=== PATIENT | female | born 1950 | race Caucasian/White ===

== ENCOUNTER 2016-08-18 08:10 | Day surgery (SDC) | payer OTHER, BC ==
[2016-08-17 08:32] VITALS: Ht 156.2 cm; Wt 70.9 kg
[~2016-08-18] VITALS: Ht 156.2 cm; Wt 70.9 kg
[~2016-08-18 08:10] MED LIST: AMLO-110 PO; CEFAZOLIN 2000 MG/60 ML D5W IV SCH; CHOL1000 PO; COCO1OIL2 PO; COEN50CA22 PO; DOCU-94 PO; LACTATED RINGER'S 1000ML 1,000 ML IV SCH; LEVO75TA5 PO; MULT-506 PO; SENN1TAB80 PO; TURM500T PO; VENL75CA73 PO; ZOLP10TA PO
[2016-08-18 08:41] VITALS: BP 140/84; PULSE 63; TEMP 36.9; O2SAT 98
[2016-08-18] MEDS ORDERED: DEXAMETHASONE SOD INJ 4 MG/ML VIAL ONE (09:53)
[2016-08-18] MEDS ORDERED: ROCURONIUM BROMIDE 10 MG/ML 5 ML VIAL ONE (09:53)
[2016-08-18] MEDS ORDERED: ONDANSETRON INJ 2 MG/ML 2 ML VIAL ONE (09:53)
[2016-08-18] MEDS ORDERED: PROPOFOL IV EMULSION 10 MG/ML 20 ML VIAL IV ONE (09:53)
[2016-08-18] MEDS ORDERED: LIDOCAINE HCL 2% 2 ML VIAL (20MG/ML) ONE (09:53)
[2016-08-18] MEDS ORDERED: MIDAZOLAM HCL 1 MG/ML 2ML VIAL ONE (09:53)
[2016-08-18] MEDS ORDERED: GLYCOPYRROLATE INJ 0.2 MG/ML VIAL ONE ×2 (09:53→12:24)
[2016-08-18] MEDS ORDERED: NEOSTIGMINE METHYLSULFATE 5 MG/5 ML SYR ONE (09:53)
[2016-08-18] MEDS ORDERED: FENTANYL CITRATE INJ 50 MCG/1 ML 2 ML VIAL ONE ×2 (09:54)
[2016-08-18] MEDS ORDERED: NURSING VERBAL MED ORDER ONE (10:15)
[2016-08-18] MEDS ORDERED: SCOPOLAMINE 1.5 MG TDSY TD ONE (10:21)
--- NOTE | 2016-08-18 10:24 | History & Physical Bridge Note ---
H&P Re-Evaluation Bridge Note: I have examined the patient, reviewed the History & Physical and in the interval since the performance of the History & Physical I have noted the following changes of clinical significance: No changes noted
[2016-08-18] MEDS ORDERED: BACITRACIN OINT 15 GM TUBE ONE (10:43)
[2016-08-18] MEDS ORDERED: BUPIVACAINE 0.5 % 5 MG/1 ML MPF 30ML VIAL ONE (10:43)
[2016-08-18] MEDS ORDERED: LIDOCAINE HCL 1% 20 ML VIAL ONE (10:43)
[2016-08-18] MEDS ORDERED: EpHEDrine SULFATE INJ 50 MG/ML AMP IV PRN (11:45)
[2016-08-18] MEDS ORDERED: ONDANSETRON INJ 2 MG/ML 2 ML VIAL IV PRN (11:45)
[2016-08-18] MEDS ORDERED: ATROPINE SULFATE 0.1 MG/ML 5ML SYR IV PRN (11:45)
--- NOTE | 2016-08-18 12:30 | [facility] Post Operative Brief Note ---
Immediate Operative Summary Operative Date Aug 18, 2016. Pre-Operative Diagnosis Cholelithasis, cholecystitis Post-Operative Diagnosis same Procedure(s) Performed Laparoscopic Cholecystectomy Surgeon DR Choi Cattle Inspector Surgeon(s) nursing surgical services director Estimated Blood Loss 10 ml Findings chronic cholecystitis, cholelithiasis Fluids (cc crystalloids) 1100ml Specimens a. gallbladder Drains none Anesthesia general Complication(s) None Disposition Recovery Room / PACU
--- NOTE | 2016-08-18 12:37 | Discharge Instructions ---
Discharge Instructions Date of Service Aug 18, 2016. Visit Reason for Visit: Gallstones Discharge Discharge Diagnosis / Problem: S/P laparoscopic cholecystectomy Discharge Goals Goal(s): Decrease discomfort, Improve nutritional status Activity Recommendations Activity Limitations: per Instructions/Follow-up section Lifting Limitations: no more than 25 pounds Exercise/Sports Limitations: gradually increase as tolerated May Resume Sexual Activity: when tolerated Shower/Bathe: may shower/bathe in 3 days Driving or Machine Use: resume 3 days after discharge Anesthesia . Post Anesthesia Instructions: If you have had General Anesthesia or IV Sedation: * Do not drive today. * Resume driving when surgeon permits. * Do not make important decisions or sign legal documents today. * Call surgeon for: 1. Temperature elevations greater than 101 degrees F. 2. Uncontrollable pain. 3. Excessive bleeding. 4. Persistent nausea and vomiting. 5. Medication intolerance (nausea, vomiting or rash). * For nausea and vomiting use only clear liquids such as: tea, soda, bouillon until nausea subsides, then gradually increase diet as tolerated. * If you have any concerns or questions, call your surgeon's office. If physician is unavailable and it is an emergency, call 911 or go to the nearest emergency room. . Instructions / Follow-Up Instructions / Follow-Up keep the dressing on for 4 days, she can take a shower on 08/22/2016, no driving while taking pain medicine, follow up i week, Diet Recommendations Recommended Home Diet: resume previous diet Procedures Procedures Performed: Laparoscopic Cholecystectomy Pending Studies Studies pending at discharge: no Medical Emergencies . Who to Call and When: Medical Emergencies: If at any time you feel your situation is an emergency, please call 911 immediately. . Non-Emergent Contact Non-Emergency issues call your: Surgeon Call Non-Emergent contact if: you have a fever, temperature is above 100.5, your pain is not controlled, your pain is worsening, wound has increased drainage, wound has increased redness . . "Provider Documentation" section prepared by Leandra Choi. . [place] Drug Monitoring Program Search Results: no issues identified
[2016-08-18] MEDS ORDERED: OXYC7.5T66 PO (12:41)
[2016-08-18] MEDS ORDERED: D5W AND 1/2NSS + 20MEQ KCL 1,000 ML IV SCH (12:42)
[2016-08-18] MEDS ORDERED: HYDROmorphone INJ 1 MG/ML SYR IV PRN (12:45)
[2016-08-18] MEDS ORDERED: OXYCODONE/ACETAMINOPHEN 5-325 TAB PO PRN (12:45)
[2016-08-18] MEDS ORDERED: ACETAMINOPHEN 325 MG TAB PO PRN (12:45)
[2016-08-18] MEDS: FENTANYL CITRATE INJ 50 MCG/1 ML 2 ML VIAL IV PRN ×4 (13:04→13:55)
--- NOTE | 2016-08-18 13:26 | Anesthesiology Progress Note ---
Anesthesia Post Op Note Date & Time Aug 18, 2016 at 13:27 Vital Signs Pain Intensity: 5 Vital Signs Past 12 Hours Date Time Temp Pulse Resp B/P (MAP) Pulse Ox O2 Delivery O2 Flow Rate FiO2 08/18/16 12:39 36.0 63 16 147/84 97 Mask 15 08/18/16 08:41 36.9 63 18 140/84 (102) 98 Room Air Notes Mental Status: alert / awake / arousable, participated in evaluation Pt Amnestic to Procedure: Yes Nausea / Vomiting: adequately controlled Pain: adequately controlled Airway Patency, RR, SpO2: stable & adequate BP & HR: stable & adequate Hydration State: stable & adequate Anesthetic Complications: no major complications apparent
--- NOTE | 2016-08-18 14:08 | OPERATIVE REPORT ---
DATE OF OPERATION: 08/18/2016 PREOPERATIVE DIAGNOSES: Chronic cholecystitis, cholelithiasis. POSTOPERATIVE DIAGNOSIS: Same. PROCEDURE: Laparoscopic cholecystectomy. SURGEON: Dr. Leandra Choi. ANESTHESIA: General. ESTIMATED BLOOD LOSS: About 10 mL. IV FLUIDS: 1100 mL. FINDINGS: Chronic cholecystitis, cholelithiasis. COMPLICATIONS: None. INDICATIONS FOR THE PROCEDURE: This is a 65-year-old female who presented with couple month history of right upper quadrant pain. The patient had a CT scan and ultrasound showing chronic cholecystitis with gallstones. The patient will be required to do laparoscopic cholecystectomy, possible open, possible cholangiogram. I did talk to the patient about the benefit and risk, alternate procedure. I indicated the risks may include but not limited such as bleeding, infection, injury to common bile duct, injury to bowel, may need ERCP, myocardial infarction, DVT, stroke, even , incisional hernia. The patient understands. She signed informed consent and I answered all questions. OPERATION AND FINDINGS: DETAILS OF PROCEDURE: We brought the patient to the OR, put the patient in the supine position. The patient received SCD on bilateral legs to prevent DVT. Also, the patient received 2 grams Ancef IV for prophylactic antibiotic. The patient received general anesthesia without difficulty. The patient had significant midline scar from 5 years ago, patient had a colon perforation surgery and the patient's abdomen was prepped and draped in routine sterile fashion. After time out, I made a small incision just in the epigastric area opened fascia, opened peritoneum under direct vision. I put the Jimbo trocar in and put a 10 mm camera in looked around the abdomen showing significant scar on the abdomen, but still there was some space on the right upper quadrant so I put another two 5 mm trocar on the right upper quadrant and put another 10 mm trocar on the left side of the abdomen at the same level at the umbilical and once all trocars in found the patient had a significant chronic cholecystitis. There is some omentum covering the cholecystitis. Gallbladder wall is thickening, so we used a grasper to hold the base of the gallbladder, put direction to the diaphragm and put another grasper in to hold the pouch of the gallbladder, put latter to expose the triangle of Calot. We peeled down the omental fat from the gallbladder. The cystic duct was identified and mobilized. I put two 5 mm metal clips on the proximal cystic duct, 1 on the distal cystic duct then used scissor transection of the cystic duct and the cystic artery was identified and mobilized. I put two 5 mm metal clips on the proximal cystic artery around the distal cystic artery. Used scissors transection the cystic artery. then I used Bovie to take down the gallbladder from the liver bed without difficulty. Rechecked no active bleeding, no bile leak. Then we removed the gallbladder through the catch bag. Then we reinserted Jimbo trocar in connected to CO2 to create pneumoperitoneum again and during the procedure, we create pneumoperitoneum by using CO2 insufflation, flow rate at 6 liter per minute, pressure not more than 14 mmHg, so we rechecked the abdomen and no active bleeding, no bile leak from the liver bed. Then we removed all trocars under direct vision. No active bleeding from trocar sites. The pneumoperitoneum was released. Then I closed the umbilical incision, fascial layer by using #1 Vicryl [id number] x2, closed the epigastrium incision fascial layer using #1 Vicryl [id number] x2 and closed subcutaneous layer by using 2-0 Vicryl and closed skin by using 4-0 Vicryl, another two 5-mm trocar site closed skin by using 4-0 Vicryl only. We put the dressing on. The patient tolerated the procedure well. After the procedure, I did talk to the patient and patient's family member about the OR finding and procedure we did, they understand. The specimen sent to pathology and all the instrument, needle and sponge count correct x2 at the end of case. I attest to the content of the Intraoperative Record and any orders documented therein. Any exceptions are noted below. MIGUEL
[2016-08-18 14:22] VITALS: BP 135/64; PULSE 65; TEMP 36.7; O2SAT 91
[2016-08-18 15:00] VITALS: BP 133/73; PULSE 81; TEMP 36; O2SAT 92
[2016-08-18 15:30] VITALS: BP 147/78; PULSE 66; TEMP 36.8; O2SAT 94
[2016-08-18] MEDS ORDERED: CHECK SCOPOLAMINE PATCH PLACEMENT SCH (16:00)
[2016-08-19] MEDS ORDERED: CEFAZOLIN IV 2,000 MG/60 ML D5W IV ONE (06:00)
== END 2016-08-18 15:45 | disposition home or self-care (01) ==
LOC: C.ACU 08:10
PROVIDERS: ATTEND Surgery
DX: K80.10 Calculus of gallbladder with chronic cholecystitis without obstruction (principal); G47.33 Obstructive sleep apnea (adult) (pediatric); I10 Essential (primary) hypertension; F32.9 Major depressive disorder, single episode, unspecified; F41.9 Anxiety disorder, unspecified; Z68.29 Body mass index [BMI] 29.0-29.9, adult; Z90.89 Acquired absence of other organs; Z79.899 Other long term (current) drug therapy; Z98.890 Other specified postprocedural states